=== PATIENT | female | born 1975 | race Caucasian/White ===

== ENCOUNTER 2019-05-30 10:00 | Emergency (ER) | payer OTHER ==
--- OUTSIDE RECORDS SUMMARY | 2019-05-30 10:52 | XMS REPORT | Continuity of Care Document ---
:1975 External Reference #:[id number] Author Name Joaquin Bang PA Address [address] [place] [address] Care Team Providers Name Role Phone Joaquin Bang PA Care Team Information Cleaning Professional Unavailable Social History Type Date Description Comments Sex Unknown Allergies, Adverse Reactions, Alerts Description No Known Drug Allergies Medications Description No Active Medications Vital Signs Date Vital Result Comment 05/30/2019 8:34am Weight 144.00 lb Heart Rate 95 /min BP Systolic 111 mmHg BP Diastolic 75 mmHg Plan of Treatment 05/30/2019 - Joaquin Bang PAR42 Dizziness and giddinessComments:?reaction to THC. ?stroke from steroid use. ?dehydration. ?new onset seizure activity.Recommend to the the ED for evaluation and workup.Will have RN communicated with ED and send our notes.G25.5 Other fpoledZ60.0 NauseaAllNew Medication:No Active Medications -
[2019-05-30] MEDS ORDERED: NS 0.9% 1000 ML** 1,000 ML IV ONE ×2 (11:39→13:20)
--- NOTE | 2019-05-30 11:39 | ED ---
Neurological HPI - HPI Summary HPI Summary: A 43 y/o female accompanied by presents to [facility] with a chief complaint of a feeling "out of it" since this morning. She notes that she is weak and dizzy with some twitching. At triage the patient rated her pain as a 0/10 in severity. She came to the ED to possible rule out a blood clot. She says that she has been working out intensely and has been taking "Anavar 10" which contains 10mg Oxandrolone. These pulls were recommended to her by her sister who is a auto body estimator, and she takes one pill before each work out. She also took a medical marijuana oil drop last night. She denies any pain anywhere, stating that she just feels "out of it". When ambulating in the ED room, she says that he "knows everything that is going on", but does not feel normal. - History of Current Complaint Chief Complaint: EDGeneral Stated Complaint: NEUROLOGICAL ISSUE PER Time Seen by Provider: 05/30/19 11:24 Hx Obtained From: Patient, Family/Dolphin Researcher Onset/Duration: Sudden Onset, Started hours ago, Still Present Timing: Constant Onset Severity: Mild Current Severity: Mild Neurological Deficit Location: Generalized Pain Intensity: 0 Pain Scale Used: 0-10 Numeric Character: Weak, Dizzy Aggravating: Nothing Alleviating: Nothing Associated Signs and Symptoms: Positive: Weakness, Dizziness. Negative: Fever - Allergy/Home Medications Allergies/Adverse Reactions: Allergies Allergy/AdvReac Type Severity Reaction Status Date / Time No Known Allergies Allergy Verified 05/30/19 10:10 Home Medications: Home Medications NK [No Home Medications Reported] 05/30/19 [History Confirmed 05/30/19] PMH/Surg Hx/FS Hx/Imm Hx Sensory History: Denies: Hx Deafness EENT History: Denies: Hx Deafness Infectious Disease History: No Infectious Disease History: Denies: Traveled Outside the [place] in Last 30 Days - Family History Known Family History: Negative: Blood Disorder - Social History Alcohol Use: Occasionally Hx Substance Use: Yes Substance Use Type: Reports: Marijuana Hx Tobacco Use: No Smoking Status (MU): Never Smoked Tobacco Review of Systems Negative: Fever Neurological: Other - positive: dizziness Positive: Weakness All Other Systems Reviewed And Are Negative: Yes Physical Exam - Summary Physical Exam Summary: GENERAL: Patient is a well-developed and nourished F who is lying comfortable in the stretcher. Patient is not in any acute respiratory distress. HEAD AND FACE: Normocephalic EYES: PERRLA, EOMI x 2. EARS: Hearing grossly intact. MOUTH: Oropharynx within normal limits. NECK: Supple, trachea is midline, no adenopathy, no JVD, no carotid bruit. CHEST: Symmetric, no tenderness at palpation LUNGS: Clear to auscultation bilaterally. No wheezing or crackles. CVS: Regular rate and rhythm, S1 and S2 present, no murmurs or gallops appreciated. ABDOMEN: Soft, non-tender. Bowel sounds are normal. No abnormal abdominal pulsations. EXTREMITIES: Full ROM in all major joints, no edema, no cyanosis or clubbing. NEURO: Alert and oriented x 3. Depressed mental status, otherwise neurologically intact. SKIN: Dry and warm GCS: 14 Triage Information Reviewed: Yes Vital Signs On Initial Exam: Initial Vitals Temp Pulse Resp BP Pulse Ox 98.0 F 70 18 108/69 97 05/30/19 10:04 05/30/19 10:04 05/30/19 10:04 05/30/19 10:04 05/30/19 10:04 Vital Signs Reviewed: Yes Diagnostics - Vital Signs Vital Signs Temp Pulse Resp BP Pulse Ox 05/30/19 10:04 98.0 F 70 18 108/69 97 - Laboratory Result Diagrams: 05/30/19 11:40 05/30/19 11:44 Lab Statement: Any lab studies that have been ordered have been reviewed, and results considered in the medical decision making process. - Radiology CXR Radiology Interpretation Completed By: Radiologist Summary of Radiographic Findings: No evidence for acute intrathoracic disease. ED physician has reviewed this imaging report. - CT Brain CT Interpretation Completed By: Radiologist Summary of CT Findings: Negative unenhanced head CT. ED physician has reviewed this imaging report. - EKG 11:46 Cardiac Rate: NL - 85 bpm EKG Rhythm: Sinus Rhythm Summary of EKG Findings: EKG at 11:46 showed NSR 85 bpm, mild prolongation of SC interval. Re-Evaluation - Re-Evaluation First Eval Re-Evaluation Time: 14:52 Change: Improved Comment: Pt is feeling better. She is lethargic. Course/Dx - Course Course Of Treatment: A 43 y/o female accompanied by presents to [facility] with a chief complaint of a feeling "out of it" since this morning. She notes that she is weak and dizzy with some twitching. The physical exam revealed a depressed mental status, otherwise neurologically intact. EKG at 11:46 showed NSR 85 bpm, mild prolongation of SC interval. Blood work, chemistries, urines and toxicology obtained and are WNL. The patient tested positive for cannabinoids. In the ED course the patient was given Zofran IV and Sodium Chloride IV. Brain CT impression: Negative unenhanced head CT. CXR impression: No evidence for acute intrathoracic disease. The patient will be discharged. I discussed results with patient, and she reports feeling better. She is hemodynamically stable and safe for discharge. Strict return precautions given and she will otherwise follow up with her PCP. - Diagnoses Provider Diagnoses: Altered mental status, Cannabis use, uncomplicated Discharge - Sign-Out/Discharge Documenting (check all that apply): Patient Departure - DC Patient Received Moderate/Deep Sedation with Procedure: No - Discharge Plan Condition: Stable Disposition: HOME Patient Education Materials: Altered Mental Status (ED) Referrals: [facility] [Outside] (1-3 days) Additional Instructions: Follow up with your primary care physician in 1-3 days. RETURN TO THE EMERGENCY DEPARTMENT FOR CHANGING OR WORSENING SYMPTOMS. - Billing Disposition and Condition Condition: STABLE Disposition: Home - Attestation Statements Document Initiated by El: Yes Documenting Scribe: Rayshawn Ricci Provider For Whom El is Documenting (Include Credential): Jose Lawson MD Scribe Attestation: IRayshawn, scribed for Jose Lawson MD on 05/30/19 at 2042. Scribe Documentation Reviewed: Yes Provider Attestation: The documentation as recorded by the Rayshawn leija accurately reflects the service I personally performed and the decisions made by me, Jose Lawson MD Status of Scribe Document: Viewed
[2019-05-30] MEDS ORDERED: Ondansetron INJ* 2 MG/ML VIAL IV ONE (11:40)
[2019-05-30 11:56] LABS: ABS Lymphocytes 0.7 10^3/ul (1.0-4.8); ABS Monocytes 0.4 10^3/ul (0-0.8); ABS Neutrophils 8.6 10^3/ul (1.5-7.7); Eosinophil % 0.1 %; Hematocrit 44 % (35-47); Hemoglobin 14.7 g/dL (12.0-16.0); Lymphocyte % 6.8 %; Mean Corpuscular HGB Conc 34 g/dL (31-36); Mean Corpuscular Hemoglobin 31 pg (27-31); Mean Corpuscular Volume 91 fL (80-97); Mean Platelet Volume 8.3 fL (7.4-10.4); Platelet Count 252 10^3/uL (150-450); Red Cell Distribution Width 13 % (10-15); White Blood Count 9.7 10^3/uL (3.5-10.8)
[2019-05-30 12:00] LABS: INR 0.97 (0.82-1.09)
[2019-05-30 12:11] LABS: ALT 14 U/L (7-52); AST 20 U/L (13-39); Albumin 4.7 g/dL (3.2-5.2); Albumin/Globulin Ratio 1.6 (1-3); Alkaline Phosphatase 35 U/L (34-104); Anion Gap 7 mmol/L (2-11); Blood Urea Nitrogen 16 mg/dL (6-24); CO2 Carbon Dioxide 25 mmol/L (22-32); Calcium 10.1 mg/dL (8.6-10.3); Chloride 102 mmol/L (101-111); Creatine Kinase 298 U/L (10-223); EGFR Non-African American 65.3 (>60); Glucose 104 mg/dL (70-100); Magnesium 2.3 mg/dL (1.9-2.7); Potassium 4.9 mmol/L (3.5-5.0); Sodium 134 mmol/L (135-145); Total Protein 7.7 g/dL (6.4-8.9)
[2019-05-30 12:18] LABS: HCG Pregnancy 2.59 mIU/mL
[2019-05-30 12:46] LABS: Acetaminophen < 15 mcg/mL; Alcohol < 10 mg/dL (<10); Salicylate < 2.50 mg/dL (<30)
[2019-05-30 13:00] LABS: TSH (Thyroid Stimulating Horm) 0.32 mcIU/mL (0.34-5.60)
[2019-05-30 14:41] LABS: Urine Appearance Clear; Urine Bacteria Absent (Absent); Urine Bilirubin Negative (Negative); Urine Blood Negative (Negative); Urine Color Yellow; Urine Glucose Negative (Negative); Urine Ketones 1+ (Negative); Urine Nitrite Negative (Negative); Urine Protein Negative (Negative); Urine Red Blood Cell Trace(0-2/hpf) (Absent); Urine Specific Gravity 1.014 (1.010-1.030); Urine Squamous Epithelial Cell Present (Absent); Urine Urobilinogen Negative (Negative); Urine White Blood Cell Trace(0-5/hpf) (Absent)
[2019-05-30 15:09] LABS: Urine Benzodiazepine Screen None Detected (None Detect); Urine Opiates Screen None Detected (None Detect)
[2019-05-30 15:47] VITALS: BP 108/71
== END 2019-05-30 15:42 | disposition home or self-care (01) ==
LOC: ED 10:00
DX: R41.82 Altered mental status, unspecified (principal); F12.90 Cannabis use, unspecified, uncomplicated
CPT/HCPCS: 36415; 70450; 71045; 80053; 80307; 80320; 80329; 81003; 81015; 82140; 82550; 83605; 83735; 84443; 84484; 84702; 85025; 85610; 87086; 93005; 96361; 96374; 99282; G0480